=== PATIENT | female | born 1935 | race Caucasian/White ===

== ENCOUNTER 2017-11-07 09:55 | Inpatient (IN) ==
[2017-11-07] MEDS ORDERED: Dexmedetomidine HCl 400 MCG/100 ML MLS IVC SCH (12:15)
[2017-11-07] MEDS: FentaNYL (PF) 1,000 MCG in 0.9 % Sodium Chloride 80 ML IVC SCH (12:30)
[2017-11-07] MEDS ORDERED: Naloxone 0.4 MG/ML INJ IVP PRN (13:22)
[2017-11-07 13:53] LABS: Basophils % 0.1 %; Hematocrit 42.4 % (35.3-44.9); Hemoglobin 13.8 g/dL (11.5-15.4); Immature Granulocytes % 0.6 % (0-4); Lymphocytes # 0.7 K/mcL (0.6-4.6); Lymphocytes % 5.2 %; Mean Corpuscular HGB Conc 32.5 g/dL (31.6-35.5); Mean Corpuscular Hemoglobin 28.6 pg (28.0-33.3); Mean Platelet Volume 9.8 fL (9.4-12.4); Monocytes # 0.1 K/mcL (0.0-1.3); Monocytes % 0.7 %; Neutrophils # 11.9 K/mcL (1.6-8.9); Platelet Count 207 K/mcL (140-400); Red Blood Count 4.82 M/mcL (3.82-4.97); Red Cell Distribution Width 14.3 % (11.5-14.5); Segmented Neutrophils % 93.4 %
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
[2017-11-07] MEDS ORDERED: Lacri-Lube 3.5 GM TUBE BOTH EYES PRN (14:20)
[2017-11-07 14:28] LABS: Alanine Aminotransferase 37 Units/L (7-52); Albumin 3.1 g/dL (3.5-5.7); Albumin/Globulin Ratio 0.9 (1.1-2.2); Alkaline Phosphatase 122 Units/L (34-104); Aspartate Amino Transferase 35 Units/L (13-39); BUN/Creatinine Ratio 24 (6-26); Bilirubin,Direct 0.1 mg/dL (0.0-0.2); Bilirubin,Indirect 0.5 mg/dL (0.0-1.2); Bilirubin,Total 0.6 mg/dL (0.3-1.0); Blood Urea Nitrogen 14 mg/dL (8-23); Calcium 8.1 mg/dL (8.6-10.3); Carbon Dioxide 21 mEq/L (23-29); Chloride 110 mEq/L (98-107); Globulin 3.3 g/dL (2.4-3.5); Glucose 157 mg/dL (70-105); Magnesium 1.6 mg/dL (1.6-2.6); Osmolality,Calculated 294 (280-300); Potassium 3.9 mEq/L (3.5-5.1); Sodium 140 mEq/L (136-145); Total Protein 6.4 g/dL (6.4-8.9); eGFR For Non-African Americans > 60 (> 60)
[2017-11-07 14:35] LABS: Bilirubin,Urine Negative (Negative); Blood,Urine Moderate (Negative); Color,Urine Yellow (Yellow); Glucose,Urine (UA) Normal (Normal); Ketones,Urine Negative (Negative); Leukocyte Esterase,Urine Large (Negative); Nitrite,Urine Positive (Negative); Protein,Urine 30 mg/dL (Neg-Trace); Specific Gravity,Urine 1.022 (1.010-1.025); Urobilinogen,Urine Normal (Normal)
[2017-11-07] MEDS: Lacri-Lube 3.5 GM TUBE BOTH EYES SCH ×3 (14:45→23:16)
[2017-11-07] MEDS: Pantoprazole 40 MG VIAL IVP SCH (14:45)
[2017-11-07 14:47] LABS: Bacteria,Urine Many per hpf (None-Few); Hyaline Casts,Urine Few per lpf (None-Few); Squamous Epithelial Cell,Urine Many per lpf (None-Few); WBC,Urine TNTC per hpf (0-3)
[2017-11-07] MEDS ORDERED: *HR* Dextrose 50 % in Water (Syg) 50 ML SYRINGE IVP PRN (14:51)
[2017-11-07] MEDS ORDERED: D5% in Water 1,000 ML IVC PRN (14:51)
[2017-11-07] MEDS ORDERED: Dextrose Gel 15 GM/37.5 ML TUBE PO PRN ×2 (14:51)
[2017-11-07 15:04] LABS: Clarity,Urine Hazy (Clear)
[2017-11-07 15:19] LABS: Amorphous Sediment,Urine Moderate (Few); Calcium Oxalate Crystals,Urine Present; RBC,Urine 15-30 per hpf (0-3)
[2017-11-07 15:21] LABS: Yeast,Urine Few per hpf (None Seen)
[2017-11-07] MEDS: Piperacillin/Tazobactam 3.375 GM in 0.9 % Sodium Chloride Mini Bag 100 ML IVPB SCH ×2 (15:58→23:16)
[2017-11-07] MEDS: *HR* Heparin 5,000 UNIT/ML VIAL SQ SCH ×2 (15:58→23:16)
[2017-11-07] MEDS: Insulin LISPRO 300 UNITS/3 ML VIAL SQ SCH ×2 (17:15→23:19)
[2017-11-07] MEDS: Chlorhexidine Rinse 15 ML MOUTHWASH MM SCH (21:09)
[2017-11-08] MEDS: FentaNYL (PF) 1,000 MCG in 0.9 % Sodium Chloride 80 ML IVC SCH (02:11)
[2017-11-08] MEDS: Lacri-Lube 3.5 GM TUBE BOTH EYES SCH ×2 (03:06→08:48)
[2017-11-08 03:50] LABS: Basophils % 0.1 %; Hematocrit 40.4 % (35.3-44.9); Immature Granulocytes % 0.3 % (0-4); Lymphocytes # 1.1 K/mcL (0.6-4.6); Lymphocytes % 9.7 %; Mean Corpuscular HGB Conc 32.2 g/dL (31.6-35.5); Mean Corpuscular Hemoglobin 27.8 pg (28.0-33.3); Mean Corpuscular Volume 86.5 fL (83.0-100.0); Mean Platelet Volume 9.8 fL (9.4-12.4); Monocytes # 0.4 K/mcL (0.0-1.3); Monocytes % 3.3 %; Neutrophils # 9.9 K/mcL (1.6-8.9); Platelet Count 223 K/mcL (140-400); Red Blood Count 4.67 M/mcL (3.82-4.97); Red Cell Distribution Width 14.3 % (11.5-14.5); Segmented Neutrophils % 86.6 %
[2017-11-08 04:15] LABS: BUN/Creatinine Ratio 20 (6-26); Blood Urea Nitrogen 12 mg/dL (8-23); Calcium 8.6 mg/dL (8.6-10.3); Carbon Dioxide 22 mEq/L (23-29); Chloride 109 mEq/L (98-107); Glucose 174 mg/dL (70-105); Osmolality,Calculated 292 (280-300); Potassium 3.7 mEq/L (3.5-5.1); Sodium 139 mEq/L (136-145); eGFR For Non-African Americans > 60 (> 60)
[2017-11-08 05:10] LABS: ABG Base Excess 1 mEq/L (-2 to 3); ABG HCO3 27 mEq/L (21-27); ABG Oxygen Saturation 95 % (95-98); ABG PCO2 44 mmHg (35-45); ABG PH 7.39 pH Units (7.32-7.45); ABG PO2 76 mmHg (85-104); ABG TCO2 28 mEq/L (20-26); Blood Gas Modality PRVC; Blood Gas PEEP 5 cm H2O; Blood Gas Respiration Rate 12; Blood Gas VT 420 cc
[2017-11-08] MEDS: Insulin LISPRO 300 UNITS/3 ML VIAL SQ SCH ×4 (06:20→23:03)
[2017-11-08] MEDS ORDERED: Furosemide 20 MG/2 ML VIAL IVP ONE (07:32)
[2017-11-08] MEDS: Piperacillin/Tazobactam 3.375 GM in 0.9 % Sodium Chloride Mini Bag 100 ML IVPB SCH ×3 (07:39→23:02)
--- NOTE | 2017-11-08 07:40 | Pulmonology Progress Note ---
<Goran Aponte W - Last Filed: 11/08/17 08:38> Date of Encounter: 11/08/17 Assessment and Plan (1) Acute respiratory failure Current Visit: No Status: Inactive Qualifiers: Respiratory failure complication: hypoxia and hypercapnia Qualified Code(s) : J96.01 - Acute respiratory failure with hypoxia; J96.02 - Acute respiratory failure with hypercapnia (2) Severe sepsis Current Visit: Yes Status: Acute (3) Poor social situation Current Visit: Yes Status: Acute (4) DVT prophylaxis Current Visit: Yes Status: Acute (5) Altered mental status Current Visit: No Status: Acute Qualifiers: Coma timing: in the field (EMT or ambulance) (6) Hypothyroidism Current Visit: No Status: Chronic Qualifiers: Hypothyroidism type: unspecified Qualified Code(s): E03.9 - Hypothyroidism , unspecified Objective PUL Vital signs: Last Vital Signs Temp 97.0 F L 11/08/17 07:30 Pulse 58 11/08/17 07:15 Resp 12 11/08/17 08:01 BP 127/64 11/08/17 07:15 Pulse Ox 94 11/08/17 08:01 Ventilator Settings Ventilator Settings: Ventilator Settings, Last 8 Hours Ventilator Tidal Volume 420 Setting Ventilator Tidal Volume 420 Setting Ventilator Tidal Volume 420 Setting Ventilator Tidal Volume 420 Setting Ventilator Tidal Volume 420 Setting Ventilator Tidal Volume 420 Setting Ventilator Tidal Volume 420 Setting Ventilator Tidal Volume 420 Setting Ventilator Tidal Volume 420 Setting Ventilator Respiratory Rate 12 Setting Ventilator Respiratory Rate 12 Setting Ventilator Respiratory Rate 12 Setting Ventilator Respiratory Rate 12 Setting Ventilator Respiratory Rate 12 Setting Ventilator Respiratory Rate 12 Setting Ventilator Respiratory Rate 12 Setting Ventilator Respiratory Rate 12 Setting Ventilator Respiratory Rate 12 Setting Actual Respiratory Rate 12 Actual Respiratory Rate 10 Actual Respiratory Rate 12 Actual Respiratory Rate 25 Actual Respiratory Rate 12 Actual Respiratory Rate 12 Actual Respiratory Rate 12 Actual Respiratory Rate 12 Actual Respiratory Rate 12 Actual Respiratory Rate 12 Positive End Expiratory 5 Pressure Positive End Expiratory 5 Pressure Positive End Expiratory 5 Pressure Positive End Expiratory 5 Pressure Positive End Expiratory 5 Pressure Positive End Expiratory 5 Pressure Positive End Expiratory 5 Pressure Positive End Expiratory 5 Pressure Positive End Expiratory 5 Pressure Positive End Expiratory 5 Pressure Peak Inspiratory Airway 15 Pressure Peak Inspiratory Airway 15 Pressure Peak Inspiratory Airway 23 Pressure Peak Inspiratory Airway 26 Pressure Peak Inspiratory Airway 25 Pressure Peak Inspiratory Airway 25 Pressure Peak Inspiratory Airway 23 Pressure Peak Inspiratory Airway 25 Pressure Peak Inspiratory Airway 24 Pressure Peak Inspiratory Airway 24 Pressure Results - Laboratory Findings CBC and BMP: 11/08/17 03:35 07/26/18 03:35 ABG ABG pH 7.39 pH Units (7.32-7.45) 11/08/17 05:08 ABG pCO2 44 mmHg (35-45) 11/08/17 05:08 ABG pO2 76 mmHg (85-104) L 11/08/17 05:08 ABG O2 Saturation 95 % (95-98) 11/08/17 05:08 Abnormal lab findings: Abnormal lab results WBC 11.5 K/mcL (4.3-11.1) H 11/08/17 03:35 MCH 27.8 pg (28.0-33.3) L 11/08/17 03:35 Neutrophils # 9.9 K/mcL (1.6-8.9) H 11/08/17 03:35 ABG pO2 76 mmHg (85-104) L 11/08/17 05:08 ABG Total CO2 28 mEq/L (20-26) H 11/08/17 05:08 Chloride 109 mEq/L (98-107) H 11/08/17 03:35 Carbon Dioxide 22 mEq/L (23-29) L 11/08/17 03:35 Glucose 174 mg/dL (70-105) H 11/08/17 03:35 POC Glucose 155 mg/dL (70-99) H 11/07/17 23:19 Alkaline Phosphatase 122 Units/L (34-104) H 11/07/17 13:37 Albumin 3.1 g/dL (3.5-5.7) L 11/07/17 13:37 Albumin/Globulin Ratio 0.9 (1.1-2.2) L 11/07/17 13:37 Urine Clarity Hazy (Clear) A 11/07/17 13:29 Urine Protein 30 mg/dL (Neg-Trace) H 11/07/17 13:29 Urine Blood Moderate (Negative) H 11/07/17 13:29 Urine Nitrite Positive (Negative) A 11/07/17 13:29 Ur Leukocyte Esterase Large (Negative) H 11/07/17 13:29 Urine Microscopic RBC 15-30 per hpf (0-3) H 11/07/17 13:29 Urine Microscopic WBC TNTC per hpf (0-3) H 11/07/17 13:29 Ur Squamous Epith Cells Many per lpf (None-Few) H 11/07/17 13:29 Amorphous Sediment Moderate (Few) H 11/07/17 13:29 Urine Bacteria Many per hpf (None-Few) H 11/07/17 13:29 Urine Yeast Few per hpf (None Seen) H 11/07/17 13:29 Ur Culture Indicated? NO. (NO) A 11/07/17 13:29 - Microbiology Findings Microbiology Findings: Microbiology, Last 48 Hours 11/07/17 13:37 Blood Culture - Preliminary Peripheral Venipuncture Culture is incubating and being continuously monitored for growth. Final report to follow. - Clinical Findings Intake & Output: Intake & Output 11/07/17 11/08/17 11/08/17 23:59 07:59 15:59 Intake Total 370 / 370 180 / 180 Output Total 525 / 525 250 / 250 Balance -155 / -155 -70 / -70 Weight 80.7 kg Consult Discharge Plan - Plan Referrals: Jersey Esquivel MD [Primary Care Provider] - - Attending Attestation I examined this patient and my medical decision-making was reviewed with the Resident Physician. I agree with the documented findings, disposition and treatment plan as described except to the extent set forth below. We independently had [id number] contact with the patient Patient seen and examined at bedside Labs, radiology, chart personally reviewed. Management was reviewed during multidisciplinary critical care rounds. 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 Acceptable gas exchange today on vent plan for spontaneous breathing trial and liberation Cards: History of atrial fibrillation currently rate controlled and in sinus rhythm. He likely restart her home oral anticoagulation for this. We will give a dose of IV Lasix for history of heart failure in preparation for liberation from the vent given her crystalloid infusion over last 24 hours a suspect a component of hydrostatic edema although appears to be fairly minimal at this point GI: GI prophylaxis given Nutrition: Nothing by mouth for now Renal: UOP Monitored, Cont to Trend sCr and monitor Electrolytes. ID: Severe sepsis lactate is normalized she is on broad-spectrum antibiotics for presumed genitourinary infection versus pneumonia de-escalate within the next 24 hours pending culture and sensitivity Heme/Onc: DVT prophylaxis given H&H stable platelets stable Endo: Glucose Monitored Integ/MSK: Skin Care per routine ICU Nursing Protocol to prevent ulcers. Lines: All lines examined without evidence of infection : Dispo: Remain in ICU today CODE: Full code social media sr strategy manager's been consulted to try to contact family members to establish NOK although there has been a history of adult protective services being involved with this patient's case. <Vianey Moran N - Last Filed: 11/08/17 16:45> Date of Encounter: 11/08/17 Time of Encounter: 07:40 Assessment and Plan (1) Acute respiratory failure Current Visit: Yes Status: Acute Patient presented from [facility] with acute respiratory failure and was intubated and transferred to the [facility] ICU for further care. Her ABG was improved with ventilator management, she was started on broad-spectrum antibiotics, and cultures were collected and are pending. Possible sources of infection include aspiration pneumonia versus UTI. Patient's respiratory failure improved overnight and she is currently tolerating oxygen mask. -continue broad spectrum antibiotic therapy -cultures pending, may de-escalate antibiotics after cultures and sensitivities -continue supplemental oxygen via oxymask -continue bronchodilators -will obtain speech consult for swallow evaluation to assess for possible aspiration pneumonia risk. (2) Severe sepsis Current Visit: Yes Status: Acute Vitals have been been stable overnight, patient's white blood cell count is near normal Respiratory failure has improved and the patient is no longer ventilator dependent Most recent lactic acid was 1.6 Continue to monitor signs of sepsis (3) Altered mental status Current Visit: No Status: Acute Patient is not oriented to time or location. Unaware this is patient's baseline. She did not appear to be confused agitated at this time. We will continue to monitor for signs of delirium. Qualifiers: Coma timing: in the field (EMT or ambulance) (4) DVT prophylaxis Current Visit: Yes Status: Acute Heparin 5000 units subcutaneous every 12 hours Subjective Principal diagnosis: Acute respiratory failure Interval history: Patient was seen and examined this morning at bedside with attending present. She remained on the ventilator overnight without, complications. This morning her sedation had been decreased and the patient was awake. A trial of CPAP was performed which the patient passed and the patient was subsequently extubated successfully. The patient is currently on oxygen mask and saturating well. The patient is awake, but she is not oriented to place or time. She does not complain of any pain or shortness of breath, but is difficult to assess due to mental status. She continues to be treated with Levaquin, Zosyn, and vancomycin broad-spectrum antibiotics with cultures pending. Her white blood cell count has decreased to near normal levels and a morning ABG shows a pH that is within range. Objective PUL Vital signs: Last Vital Signs Temp 97.9 F 11/08/17 03:00 Pulse 58 11/08/17 07:15 Resp 10 11/08/17 07:15 BP 127/64 11/08/17 07:15 Pulse Ox 94 11/08/17 07:15 General appearance: other (Appears somewhat confused, she is not oriented to place or time) Eyes: nonicteric Effort: normal Auscultation: right: rales (Course breath sounds only on the right side) Cardiovascular: regular rate and rhythm Gastrointestinal: normoactive bowel sounds, soft, non-tender Integumentary: other (Appropriate for age, evidence of ecchymosis on upper extremities) Extremities: other (Evidence of arthritic changes) Ventilator Settings Ventilator Settings: Ventilator Settings, Last 8 Hours Ventilator Tidal Volume 420 Setting Ventilator Tidal Volume 420 Setting Ventilator Tidal Volume 420 Setting Ventilator Tidal Volume 420 Setting Ventilator Tidal Volume 420 Setting Ventilator Tidal Volume 420 Setting Ventilator Tidal Volume 420 Setting Ventilator Tidal Volume 420 Setting Ventilator Tidal Volume 420 Setting Ventilator Tidal Volume 420 Setting Ventilator Respiratory Rate 12 Setting Ventilator Respiratory Rate 12 Setting Ventilator Respiratory Rate 12 Setting Ventilator Respiratory Rate 12 Setting Ventilator Respiratory Rate 12 Setting Ventilator Respiratory Rate 12 Setting Ventilator Respiratory Rate 12 Setting Ventilator Respiratory Rate 12 Setting Ventilator Respiratory Rate 12 Setting Ventilator Respiratory Rate 12 Setting Actual Respiratory Rate 10 Actual Respiratory Rate 12 Actual Respiratory Rate 25 Actual Respiratory Rate 12 Actual Respiratory Rate 12 Actual Respiratory Rate 12 Actual Respiratory Rate 12 Actual Respiratory Rate 12 Actual Respiratory Rate 12 Actual Respiratory Rate 12 Positive End Expiratory 5 Pressure Positive End Expiratory 5 Pressure Positive End Expiratory 5 Pressure Positive End Expiratory 5 Pressure Positive End Expiratory 5 Pressure Positive End Expiratory 5 Pressure Positive End Expiratory 5 Pressure Positive End Expiratory 5 Pressure Positive End Expiratory 5 Pressure Positive End Expiratory 5 Pressure Peak Inspiratory Airway 15 Pressure Peak Inspiratory Airway 23 Pressure Peak Inspiratory Airway 26 Pressure Peak Inspiratory Airway 25 Pressure Peak Inspiratory Airway 25 Pressure Peak Inspiratory Airway 23 Pressure Peak Inspiratory Airway 25 Pressure Peak Inspiratory Airway 24 Pressure Peak Inspiratory Airway 24 Pressure Peak Inspiratory Airway 24 Pressure Results - Laboratory Findings CBC and BMP: 11/08/17 03:35 11/08/17 03:35 ABG ABG pH 7.39 pH Units (7.32-7.45) 11/08/17 05:08 ABG pCO2 44 mmHg (35-45) 11/08/17 05:08 ABG pO2 76 mmHg (85-104) L 11/08/17 05:08 ABG O2 Saturation 95 % (95-98) 11/08/17 05:08 Abnormal lab findings: Abnormal lab results WBC 11.5 K/mcL (4.3-11.1) H 11/08/17 03:35 MCH 27.8 pg (28.0-33.3) L 11/08/17 03:35 Neutrophils # 9.9 K/mcL (1.6-8.9) H 11/08/17 03:35 ABG pO2 76 mmHg (85-104) L 11/08/17 05:08 ABG Total CO2 28 mEq/L (20-26) H 11/08/17 05:08 Chloride 109 mEq/L (98-107) H 11/08/17 03:35 Carbon Dioxide 22 mEq/L (23-29) L 11/08/17 03:35 Glucose 174 mg/dL (70-105) H 11/08/17 03:35 POC Glucose 155 mg/dL (70-99) H 11/07/17 23:19 Alkaline Phosphatase 122 Units/L (34-104) H 11/07/17 13:37 Albumin 3.1 g/dL (3.5-5.7) L 11/07/17 13:37 Albumin/Globulin Ratio 0.9 (1.1-2.2) L 11/07/17 13:37 Urine Clarity Hazy (Clear) A 11/07/17 13:29 Urine Protein 30 mg/dL (Neg-Trace) H 11/07/17 13:29 Urine Blood Moderate (Negative) H 11/07/17 13:29 Urine Nitrite Positive (Negative) A 11/07/17 13:29 Ur Leukocyte Esterase Large (Negative) H 11/07/17 13:29 Urine Microscopic RBC 15-30 per hpf (0-3) H 11/07/17 13:29 Urine Microscopic WBC TNTC per hpf (0-3) H 11/07/17 13:29 Ur Squamous Epith Cells Many per lpf (None-Few) H 11/07/17 13:29 Amorphous Sediment Moderate (Few) H 11/07/17 13:29 Urine Bacteria Many per hpf (None-Few) H 11/07/17 13:29 Urine Yeast Few per hpf (None Seen) H 11/07/17 13:29 Ur Culture Indicated? NO. (NO) A 11/07/17 13:29 - Microbiology Findings Microbiology Findings: Microbiology, Last 48 Hours 11/07/17 13:37 Blood Culture - Preliminary Peripheral Venipuncture Culture is incubating and being continuously monitored for growth. Final report to follow. - Clinical Findings Intake & Output: Intake & Output 11/07/17 11/07/17 11/08/17 15:59 23:59 07:59 Intake Total 370 / 370 180 / 180 Output Total 525 / 525 150 / 150 Balance -155 / -155 30 / 30 Weight 77.6 kg 80.7 kg
[2017-11-08] MEDS: *HR* Heparin 5,000 UNIT/ML VIAL SQ SCH ×3 (07:45→23:03)
[2017-11-08] MEDS: Levofloxacin 750 MG/150 ML 750 MG/150 ML BAG IVPB SCH (08:47)
[2017-11-08] MEDS: Chlorhexidine Rinse 15 ML MOUTHWASH MM SCH (08:48)
[2017-11-08] MEDS: Pantoprazole 40 MG VIAL IVP SCH (08:48)
[2017-11-08] MEDS ORDERED: Aminoglycoside Consult 1 EACH MC ONE (12:11)
[2017-11-09 04:10] LABS: Basophils % 0.1 %; Eosinophils % 0.1 %; Hemoglobin 13.3 g/dL (11.5-15.4); Immature Granulocytes % 0.6 % (0-4); Lymphocytes # 1.8 K/mcL (0.6-4.6); Lymphocytes % 14.4 %; Mean Corpuscular HGB Conc 32.4 g/dL (31.6-35.5); Mean Corpuscular Hemoglobin 28.3 pg (28.0-33.3); Mean Corpuscular Volume 87.2 fL (83.0-100.0); Mean Platelet Volume 10.1 fL (9.4-12.4); Monocytes # 0.9 K/mcL (0.0-1.3); Monocytes % 6.9 %; Platelet Count 278 K/mcL (140-400); Red Cell Distribution Width 14.3 % (11.5-14.5); Segmented Neutrophils % 77.9 %
[2017-11-09 04:22] LABS: BUN/Creatinine Ratio 18 (6-26); Blood Urea Nitrogen 11 mg/dL (8-23); Calcium 8.5 mg/dL (8.6-10.3); Carbon Dioxide 26 mEq/L (23-29); Chloride 105 mEq/L (98-107); Glucose 117 mg/dL (70-105); Osmolality,Calculated 288 (280-300); Potassium 2.9 mEq/L (3.5-5.1); Sodium 139 mEq/L (136-145); eGFR For Non-African Americans > 60 (> 60)
[2017-11-09] MEDS: Insulin LISPRO 300 UNITS/3 ML VIAL SQ SCH (05:15)
[2017-11-09 07:05] LABS: Magnesium 1.8 mg/dL (1.6-2.6)
[2017-11-09] MEDS: Piperacillin/Tazobactam 3.375 GM in 0.9 % Sodium Chloride Mini Bag 100 ML IVPB SCH ×2 (07:39→15:00)
[2017-11-09] MEDS: Pantoprazole 40 MG VIAL IVP SCH (07:39)
[2017-11-09] MEDS: *HR* Heparin 5,000 UNIT/ML VIAL SQ SCH ×2 (07:40→15:02)
[2017-11-09] MEDS: Levofloxacin 750 MG/150 ML 750 MG/150 ML BAG IVPB SCH (07:40)
[2017-11-09] MEDS ORDERED: Ondansetron 4 MG/2 ML VIAL IVP PRN ×2 (08:18→08:23)
[2017-11-09] MEDS ORDERED: *HR* Dextrose 50 % in Water (Syg) 50 ML SYRINGE IVP PRN (08:23)
[2017-11-09] MEDS ORDERED: D5% in Water 1,000 ML IVC PRN (08:23)
[2017-11-09] MEDS ORDERED: Naloxone 0.4 MG/ML INJ IVP PRN (08:23)
[2017-11-09] MEDS ORDERED: Dextrose Gel 15 GM/37.5 ML TUBE PO PRN ×2 (08:23)
[2017-11-09] MEDS ORDERED: Pantoprazole 40 MG VIAL IVP SCH (09:00)
--- NOTE | 2017-11-09 09:44 | Pulmonology Progress Note ---
<Goran Aponte W - Last Filed: 11/09/17 10:44> Date of Encounter: 11/09/17 Assessment and Plan (1) Severe sepsis Current Visit: Yes Status: Acute (2) Poor social situation Current Visit: Yes Status: Acute (3) DVT prophylaxis Current Visit: Yes Status: Acute (4) Altered mental status Current Visit: No Status: Acute Qualifiers: Coma timing: in the field (EMT or ambulance) (5) Hypothyroidism Current Visit: No Status: Chronic Qualifiers: Hypothyroidism type: unspecified Qualified Code(s): E03.9 - Hypothyroidism , unspecified Objective PUL Vital signs: Last Vital Signs Temp 98.2 F 11/09/17 04:51 Pulse 52 11/09/17 08:00 Resp 20 11/09/17 08:00 BP 147/64 11/09/17 08:00 Pulse Ox 93 11/09/17 08:00 Results - Laboratory Findings CBC and BMP: 11/09/17 03:26 11/09/17 03:26 ABG ABG pH 7.39 pH Units (7.32-7.45) 11/08/17 05:08 ABG pCO2 44 mmHg (35-45) 11/08/17 05:08 ABG pO2 76 mmHg (85-104) L 11/08/17 05:08 ABG O2 Saturation 95 % (95-98) 11/08/17 05:08 Abnormal lab findings: Abnormal lab results WBC 12.8 K/mcL (4.3-11.1) H 11/09/17 03:26 Neutrophils # 10.0 K/mcL (1.6-8.9) H 11/09/17 03:26 ABG pO2 76 mmHg (85-104) L 11/08/17 05:08 ABG Total CO2 28 mEq/L (20-26) H 11/08/17 05:08 Potassium 2.9 mEq/L (3.5-5.1) L 11/09/17 03:26 Glucose 117 mg/dL (70-105) H 11/09/17 03:26 POC Glucose 112 mg/dL (70-99) H 11/08/17 22:51 Calcium 8.5 mg/dL (8.6-10.3) L 11/09/17 03:26 Alkaline Phosphatase 122 Units/L (34-104) H 11/07/17 13:37 Albumin 3.1 g/dL (3.5-5.7) L 11/07/17 13:37 Albumin/Globulin Ratio 0.9 (1.1-2.2) L 11/07/17 13:37 Urine Clarity Hazy (Clear) A 11/07/17 13:29 Urine Protein 30 mg/dL (Neg-Trace) H 11/07/17 13:29 Urine Blood Moderate (Negative) H 11/07/17 13:29 Urine Nitrite Positive (Negative) A 11/07/17 13:29 Ur Leukocyte Esterase Large (Negative) H 11/07/17 13:29 Urine Microscopic RBC 15-30 per hpf (0-3) H 11/07/17 13:29 Urine Microscopic WBC TNTC per hpf (0-3) H 11/07/17 13:29 Ur Squamous Epith Cells Many per lpf (None-Few) H 11/07/17 13:29 Amorphous Sediment Moderate (Few) H 11/07/17 13:29 Urine Bacteria Many per hpf (None-Few) H 11/07/17 13:29 Urine Yeast Few per hpf (None Seen) H 11/07/17 13:29 Ur Culture Indicated? NO. (NO) A 11/07/17 13:29 Vancomycin Trough 35 mcg/mL (5-10) H 11/08/17 21:16 - Microbiology Findings Microbiology Findings: Microbiology, Last 48 Hours 11/07/17 14:15 Legionella Antigen - Final Urine,Catheterized Streptococcus pneumoniae Antigen (M - Final 11/07/17 13:37 Blood Culture - Preliminary Peripheral Venipuncture Culture is incubating and being continuously monitored for growth. Final report to follow. - Clinical Findings Intake & Output: Intake & Output 11/08/17 11/09/17 11/09/17 23:59 07:59 15:59 Intake Total 350 / 350 100 / 100 0 / 0 Output Total 500 / 500 450 / 450 Balance -150 / -150 -350 / -350 0 / 0 Weight 82 kg 83 kg Consult Discharge Plan - Plan Referrals: Jersey Esquivel MD [Primary Care Provider] - - Attending Attestation I examined this patient and my medical decision-making was reviewed with the Resident Physician. I agree with the documented findings, disposition and treatment plan as described except to the extent set forth below. We independently had [id number] contact with the patient Patient seen and examined at bedside Labs, radiology, chart personally reviewed. Management was reviewed during multidisciplinary critical care rounds. 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 avoid sensory deprivation, and avoid SHRIMP PACKER depressant medications as able. Pulm: Acute hypoxic hypercapnic respiratory failure secondary to sepsis liberated from the vent doing well on nasal cannula O2 wean as tolerated Cards: Continue diuretic for known heart failure GI: Stop PPI Nutrition: Appreciate formal speech evaluation will advance diet based upon the recommendations Renal: UOP Monitored, Cont to Trend sCr and monitor Electrolytes. ID: Continue treatment for sepsis which is improving suspected UTI patient has gram-negative rods from urine an outside hospital stop vancomycin and Levaquin today further de-escalation based upon clinical course. Heme/Onc: DVT prophylaxis given holding long-term anticoagulation with NOAC pending formal indication Endo: Glucose Monitored Integ/MSK: Skin Care per routine ICU Nursing Protocol to prevent ulcers. Lines: All lines examined without evidence of infection : Dispo: Stable for transfer out of ICU to [facility] for ongoing care report called to hospitalist service CODE: Full <Vianey Moran N - Last Filed: 11/09/17 14:28> Date of Encounter: 11/09/17 Time of Encounter: 09:43 Assessment and Plan (1) Acute respiratory failure Current Visit: Yes Status: Acute Patient presented from [facility] ED with acute respiratory failure and was intubated and transferred to the [facility] ICU for further care. Her ABG was improved with ventilator management, she was started on broad-spectrum antibiotics, and cultures were collected. Urine culture from [facility] reportedly grew Pseudomonas. Patient's respiratory failure has improved and she is currently only on room air and nasal cannula at times. -Discontinue vancomycin and Levaquin. Patient is only on Zosyn now. -Continue supplemental oxygen via nasal cannula as needed. -continue bronchodilators (2) Severe sepsis Current Visit: Yes Status: Acute Vitals have been been stable overnight, patient's white blood cell count has remained stable and slightly elevated Respiratory failure has improved and the patient is no longer ventilator dependent Most recent lactic acid was 1.6 Continue to monitor signs of sepsis (3) Altered mental status Current Visit: No Status: Acute Patient is not oriented to time or location. Unaware this is patient's baseline. Qualifiers: Coma timing: in the field (EMT or ambulance) (4) DVT prophylaxis Current Visit: Yes Status: Acute Heparin 5000 units subcutaneous every 12 hours Subjective Principal diagnosis: Acute respiratory failure Interval history: Patient was seen and examined this morning at bedside with attending present. She has been stable overnight on 4 L nasal cannula saturating over 95%. No recorded fevers overnight and has remained hemodynamically stable. Blood pressure readings have been elevated in the 140s to 150s systolic. Patient is awake and alert today, however it is hard to assess her mental status as she is slightly confused and difficult to understand. Denies any pain today, but is experiencing some nausea which subsided after Zofran. Her urinary culture from [facility] grew Pseudomonas, de-escalated antibiotics with the removal of vancomycin and Levaquin. Patient is now only on Zosyn. Stable for transfer to [facility] telemetry. Objective PUL Vital signs: Last Vital Signs Temp 98.2 F 11/09/17 04:51 Pulse 52 11/09/17 08:00 Resp 20 11/09/17 08:00 BP 147/64 11/09/17 08:00 Pulse Ox 93 11/09/17 08:00 General appearance: other (Slightly confused, speech is difficult to understand. ) Effort: normal Auscultation: bilateral: clear Cardiovascular: regular rate and rhythm Gastrointestinal: normoactive bowel sounds, soft, non-tender Integumentary: normal unable to assess due to mental status Results - Laboratory Findings CBC and BMP: 11/09/17 03:26 11/09/17 03:26 ABG ABG pH 7.39 pH Units (7.32-7.45) 11/08/17 05:08 ABG pCO2 44 mmHg (35-45) 11/08/17 05:08 ABG pO2 76 mmHg (85-104) L 11/08/17 05:08 ABG O2 Saturation 95 % (95-98) 11/08/17 05:08 Abnormal lab findings: Abnormal lab results WBC 12.8 K/mcL (4.3-11.1) H 11/09/17 03:26 Neutrophils # 10.0 K/mcL (1.6-8.9) H 11/09/17 03:26 ABG pO2 76 mmHg (85-104) L 11/08/17 05:08 ABG Total CO2 28 mEq/L (20-26) H 11/08/17 05:08 Potassium 2.9 mEq/L (3.5-5.1) L 11/09/17 03:26 Glucose 117 mg/dL (70-105) H 11/09/17 03:26 POC Glucose 112 mg/dL (70-99) H 11/08/17 22:51 Calcium 8.5 mg/dL (8.6-10.3) L 11/09/17 03:26 Alkaline Phosphatase 122 Units/L (34-104) H 11/07/17 13:37 Albumin 3.1 g/dL (3.5-5.7) L 11/07/17 13:37 Albumin/Globulin Ratio 0.9 (1.1-2.2) L 11/07/17 13:37 Urine Clarity Hazy (Clear) A 11/07/17 13:29 Urine Protein 30 mg/dL (Neg-Trace) H 11/07/17 13:29 Urine Blood Moderate (Negative) H 11/07/17 13:29 Urine Nitrite Positive (Negative) A 11/07/17 13:29 Ur Leukocyte Esterase Large (Negative) H 11/07/17 13:29 Urine Microscopic RBC 15-30 per hpf (0-3) H 11/07/17 13:29 Urine Microscopic WBC TNTC per hpf (0-3) H 11/07/17 13:29 Ur Squamous Epith Cells Many per lpf (None-Few) H 11/07/17 13:29 Amorphous Sediment Moderate (Few) H 11/07/17 13:29 Urine Bacteria Many per hpf (None-Few) H 11/07/17 13:29 Urine Yeast Few per hpf (None Seen) H 11/07/17 13:29 Ur Culture Indicated? NO. (NO) A 11/07/17 13:29 Vancomycin Trough 35 mcg/mL (5-10) H 11/08/17 21:16 - Microbiology Findings Microbiology Findings: Microbiology, Last 48 Hours 11/07/17 14:15 Legionella Antigen - Final Urine,Catheterized Streptococcus pneumoniae Antigen (M - Final 11/07/17 13:37 Blood Culture - Preliminary Peripheral Venipuncture Culture is incubating and being continuously monitored for growth. Final report to follow. - Clinical Findings Intake & Output: Intake & Output 11/08/17 11/09/17 11/09/17 23:59 07:59 15:59 Intake Total 350 / 350 100 / 100 0 / 0 Output Total 500 / 500 450 / 450 Balance -150 / -150 -350 / -350 0 / 0 Weight 82 kg 83 kg
[2017-11-09] MEDS ORDERED: Insulin LISPRO 300 UNITS/3 ML VIAL SQ SCH (12:00)
[2017-11-09] MEDS ORDERED: *HR* Labetalol 20 MG/4 ML SYRINGE IVP ONE (13:27)
[2017-11-09 15:23] LABS: BUN/Creatinine Ratio 13 (6-26); Blood Urea Nitrogen 11 mg/dL (8-23); Carbon Dioxide 30 mEq/L (23-29); Chloride 105 mEq/L (98-107); Glucose 128 mg/dL (70-105); Osmolality,Calculated 299 (280-300); Potassium 3.3 mEq/L (3.5-5.1); Sodium 144 mEq/L (136-145); eGFR For Non-African Americans > 60 (> 60)
[2017-11-10] MEDS: *HR* Heparin 5,000 UNIT/ML VIAL SQ SCH ×3 (00:49→16:30)
[2017-11-10] MEDS: Piperacillin/Tazobactam 3.375 GM in 0.9 % Sodium Chloride Mini Bag 100 ML IVPB SCH ×3 (00:50→16:29)
[2017-11-10 02:11] LABS: Basophils % 0.2 %; Eosinophils % 0.3 %; Hematocrit 41.2 % (35.3-44.9); Hemoglobin 13.3 g/dL (11.5-15.4); Immature Granulocytes % 0.5 % (0-4); Lymphocytes # 2.3 K/mcL (0.6-4.6); Lymphocytes % 21.4 %; Mean Corpuscular HGB Conc 32.3 g/dL (31.6-35.5); Mean Corpuscular Hemoglobin 27.9 pg (28.0-33.3); Mean Corpuscular Volume 86.6 fL (83.0-100.0); Mean Platelet Volume 9.9 fL (9.4-12.4); Monocytes % 9.1 %; Neutrophils # 7.4 K/mcL (1.6-8.9); Platelet Count 280 K/mcL (140-400); Red Blood Count 4.76 M/mcL (3.82-4.97); Red Cell Distribution Width 14.3 % (11.5-14.5); Segmented Neutrophils % 68.5 %
[2017-11-10 02:28] LABS: BUN/Creatinine Ratio 14 (6-26); Blood Urea Nitrogen 10 mg/dL (8-23); Carbon Dioxide 29 mEq/L (23-29); Chloride 105 mEq/L (98-107); Glucose 133 mg/dL (70-105); Osmolality,Calculated 291 (280-300); Potassium 3.1 mEq/L (3.5-5.1); Sodium 140 mEq/L (136-145); eGFR For Non-African Americans > 60 (> 60)
--- NOTE | 2017-11-10 09:27 | Internal Med Progress Note ---
<David Gary - Last Filed: 11/10/17 09:55> Date of Encounter: 11/10/17 Time of Encounter: 09:21 - Assessment and plan (1) Hypokalemia Current Visit: No Status: Resolved Assessment and plan: 3.1 today 40mEq Potassium Chloride slurry daily Continue to monitor (2) Urinary tract infection Current Visit: Yes Status: Acute Assessment and plan: UA on 11/07 revealed UTI Culture grew pseudomonas On day #4 of Zosyn as above Cont Zosyn Cont [place] maintenance Qualifiers: Urinary tract infection type: site unspecified Hematuria presence: with hematuria Qualified Code(s): N39.0 - Urinary tract infection, site not specified; R31.9 - Hematuria, unspecified (3) DVT prophylaxis Current Visit: Yes Status: Acute Assessment and plan: heparin SQ (4) Aspiration pneumonia Current Visit: Yes Status: Acute Assessment and plan: Per SNF, pt has to eat with supervision due to tendency to eat while lying flat and concerns for aspiration Presented with elevated WBC and respiratory failure Afebrile WBC 10.8 today Day #4 of Zosyn Diffuse wheezes on respiratory exam Albuterol nebs scheduled q4hr today, may de-escalate tomorrow if continued improvement Cont Zosyn Cont to monitor Qualifiers: Aspiration pneumonia type: unspecified Laterality: unspecified laterality Lung location: unspecified part of lung Qualified Code(s): J69.0 - Pneumonitis due to inhalation of food and vomit - Time Spent With Patient Total time spent is greater than 50% in coordination of care (as documented) at patient's floor/unit and/or counseling patient: - Subjective Interval history: Ms. Quintana is an 82F [facility] of CHF, HTN, RA, GERD, and hyperthyroidism, who was admitted for acute respiratory failure on 11/07. Required intubation and ventilator support for 1 night. Was successfully extubated on 11/08. Abx treatment tailored to Zosyn when urine culture grew pseudomonas. No acute events overnight. Difficult to assess mental status and continues to be pleasant but confused. Pt states she is "a little" SOB. States she is coughing and feels congested but is unable to cough the sputum up. Denies any fever, chills, chest pain, or abdominal pain. - Constitutional Vitals: Temp Pulse Resp BP Pulse Ox 99.2 F 72 15 135/61 95 11/10/17 06:40 11/10/17 06:40 11/10/17 06:40 11/10/17 06:40 11/10/17 06:40 General appearance: Present: cooperative, A&O X 1, pleasant, no acute distress Exam: Head: normocephalic and atraumatic Eyes: PERRL, EOMI, sclera anicteric, conjunctiva pink Neck: supple, trachea midline Lungs: Diffuse wheezes, non-labored breathing on 2lpm O2. No rales appreciated. Heart: RRR +S1 +S2. no murmurs, clicks or rubs appreciated. GI: abdomen soft, non-tender, distended. normoactive bowel sounds Extremities: warm, radial pulses palpable and symmetrical. no pedal edema or cyanosis. venous stasis changes in LEs. Neuro: A&Ox1. pt talking to herself and difficult to understand Skin: warm, dry, intact Internal Medicine: Result - Labs CBC & Chem 7: 11/10/17 01:50 11/10/17 01:50 Labs: Short CBC 11/10/17 Range/Units 01:50 WBC 10.8 (4.3-11.1) K/mcL Hgb 13.3 (11.5-15.4) g/dL Hct 41.2 (35.3-44.9) % Plt Count 280 (140-400) K/mcL Neutrophils # 7.4 (1.6-8.9) K/mcL BMP 11/09/17 11/10/17 14:47 01:50 Sodium 144 140 Potassium 3.3 L 3.1 L Chloride 105 105 Carbon Dioxide 30 H 29 BUN 11 10 Creatinine 0.84 0.71 Glucose 128 H 133 H Calcium 9.0 9.0 - ABG Interpretation ABG results: ABG ABG pH 7.39 pH Units (7.32-7.45) 11/08/17 05:08 ABG pCO2 44 mmHg (35-45) 11/08/17 05:08 ABG pO2 76 mmHg (85-104) L 11/08/17 05:08 ABG O2 Saturation 95 % (95-98) 11/08/17 05:08 Consult Discharge Plan - Plan Referrals: Jersey Esquivel MD [Primary Care Provider] - <Tayler Wick - Last Filed: 11/10/17 13:39> Date of Encounter: 11/10/17 - Assessment and plan (1) Urinary tract infection Current Visit: Yes Status: Acute Qualifiers: Urinary tract infection type: site unspecified Hematuria presence: with hematuria Qualified Code(s): N39.0 - Urinary tract infection, site not specified; R31.9 - Hematuria, unspecified (2) Hypokalemia Current Visit: No Status: Resolved (3) DVT prophylaxis Current Visit: Yes Status: Acute (4) Aspiration pneumonia Current Visit: Yes Status: Acute Qualifiers: Aspiration pneumonia type: unspecified Laterality: unspecified laterality Lung location: unspecified part of lung Qualified Code(s): J69.0 - Pneumonitis due to inhalation of food and vomit - Time Spent With Patient Total time spent is greater than 50% in coordination of care (as documented) at patient's floor/unit and/or counseling patient: - Constitutional Vitals: Temp Pulse Resp BP Pulse Ox 98.2 F 68 16 144/62 96 11/10/17 10:56 11/10/17 10:56 11/10/17 11:08 11/10/17 10:56 11/10/17 11:08 Internal Medicine: Result - Labs CBC & Chem 7: 11/10/17 01:50 11/10/17 01:50 Labs: Short CBC 11/10/17 Range/Units 01:50 WBC 10.8 (4.3-11.1) K/mcL Hgb 13.3 (11.5-15.4) g/dL Hct 41.2 (35.3-44.9) % Plt Count 280 (140-400) K/mcL Neutrophils # 7.4 (1.6-8.9) K/mcL BMP 11/09/17 11/10/17 14:47 01:50 Sodium 144 140 Potassium 3.3 L 3.1 L Chloride 105 105 Carbon Dioxide 30 H 29 BUN 11 10 Creatinine 0.84 0.71 Glucose 128 H 133 H Calcium 9.0 9.0 - ABG Interpretation ABG results: ABG ABG pH 7.39 pH Units (7.32-7.45) 11/08/17 05:08 ABG pCO2 44 mmHg (35-45) 11/08/17 05:08 ABG pO2 76 mmHg (85-104) L 11/08/17 05:08 ABG O2 Saturation 95 % (95-98) 11/08/17 05:08 - Attending Attestation I examined this patient and my medical decision-making was reviewed with the Resident Physician Dr. Gary. I agree with the documented findings, disposition and treatment plan as described except to the extent set forth below. Ms. Quintana is an 82[facility] PMH of CHF, HTN, RA, GERD, and hyperthyroidism, who was admitted for acute respiratory failure on 11/07. Required intubation and ventilator support for 1 night. Was successfully extubated on 11/08. Abx treatment tailored to Zosyn when urine culture grew pseudomonas. Pt is alert, awake and oriented to self only. Following all the commands. Mentation granger seems to be at baseline. Gen; A, A, O x self Chest: Diminished BS B/l, No rales, Crackles + rhonchi Heart: S1S2+ 1. Sepsis with PNA + UTI 2. Acute hypoxic resp failure 3. s/p VDRF cont Duoneb + O2 Cont empirical abx PNA mostly aspiration she does have lot of resp secretions, will do chest percussion and frequent deep suctions 4. UTI with Psuedomonas on Zosyn
[2017-11-10] MEDS: Albuterol 2.5 MG/3 ML NEBULIZER IH SCH ×4 (11:08→23:37)
[2017-11-10] MEDS: Potassium Chloride Elixir 20 MEQ/15 ML UDC PO SCH (11:22)
[2017-11-10] MEDS: Nystatin POWDER 30 GM BOTTLE TP SCH ×2 (11:22→20:04)
[2017-11-11] MEDS: *HR* Heparin 5,000 UNIT/ML VIAL SQ SCH ×3 (00:06→16:10)
[2017-11-11] MEDS: Piperacillin/Tazobactam 3.375 GM in 0.9 % Sodium Chloride Mini Bag 100 ML IVPB SCH ×3 (00:06→16:18)
[2017-11-11 03:25] LABS: Basophils % 0.3 %; Eosinophils # 0.2 K/mcL (0.0-0.6); Eosinophils % 2.8 %; Hemoglobin 12.2 g/dL (11.5-15.4); Immature Granulocytes % 0.4 % (0-4); Lymphocytes # 2.4 K/mcL (0.6-4.6); Mean Corpuscular Hemoglobin 28.6 pg (28.0-33.3); Mean Corpuscular Volume 86.7 fL (83.0-100.0); Mean Platelet Volume 9.8 fL (9.4-12.4); Monocytes # 0.6 K/mcL (0.0-1.3); Neutrophils # 3.6 K/mcL (1.6-8.9); Platelet Count 245 K/mcL (140-400); Red Blood Count 4.27 M/mcL (3.82-4.97); Red Cell Distribution Width 14.6 % (11.5-14.5); Segmented Neutrophils % 52.5 %
[2017-11-11 03:44] LABS: BUN/Creatinine Ratio 14 (6-26); Blood Urea Nitrogen 10 mg/dL (8-23); Calcium 8.7 mg/dL (8.6-10.3); Carbon Dioxide 31 mEq/L (23-29); Chloride 106 mEq/L (98-107); Glucose 113 mg/dL (70-105); Osmolality,Calculated 292 (280-300); Sodium 141 mEq/L (136-145); eGFR For Non-African Americans > 60 (> 60)
[2017-11-11] MEDS: Albuterol 2.5 MG/3 ML NEBULIZER IH SCH ×5 (04:23→20:20)
[2017-11-11] MEDS: Potassium Chloride Elixir 20 MEQ/15 ML UDC PO SCH (08:51)
--- NOTE | 2017-11-11 08:55 | Internal Med Progress Note ---
<David Gary - Last Filed: 11/11/17 08:53> Date of Encounter: 11/11/17 Time of Encounter: 08:53 - Assessment and plan (1) Hypokalemia Current Visit: No Status: Resolved Assessment and plan: 3.0 today 40mEq Potassium Chloride slurry daily 40mEq Potassium IV today Continue to monitor (2) Urinary tract infection Current Visit: Yes Status: Acute Assessment and plan: UA on 11/07 revealed UTI Culture grew pseudomonas On day #5 of Zosyn as above Cont Zosyn Cont [place] maintenance Qualifiers: Urinary tract infection type: site unspecified Hematuria presence: with hematuria Qualified Code(s): N39.0 - Urinary tract infection, site not specified; R31.9 - Hematuria, unspecified (3) DVT prophylaxis Current Visit: Yes Status: Acute Assessment and plan: heparin SQ (4) Aspiration pneumonia Current Visit: Yes Status: Acute Assessment and plan: Per SNF, pt has to eat with supervision due to tendency to eat while lying flat and concerns for aspiration Presented with elevated WBC and respiratory failure More energetic today Afebrile WBC 6.8 today Day #5 of Zosyn Diffuse wheezes on respiratory exam Albuterol nebs scheduled q4hr since yesterday with no improvement on physical exam Add po prednisone Cont scheduled nebs Cont Zosyn since pt also has Psuedomonas UTI Cont to monitor Anticipate ready for d/c tomorrow to SNF. Will switch to po abx at that time Qualifiers: Aspiration pneumonia type: unspecified Laterality: unspecified laterality Lung location: unspecified part of lung Qualified Code(s): J69.0 - Pneumonitis due to inhalation of food and vomit - Time Spent With Patient Total time spent is greater than 50% in coordination of care (as documented) at patient's floor/unit and/or counseling patient: - Subjective Interval history: [facility] 82[facility], RA, GERD, and hyperthyroidism, who was admitted for acute respiratory failure on 11/07. Required intubation and ventilator support for 1 night. Was successfully extubated on 11/08. Abx treatment tailored to Zosyn when urine culture grew pseudomonas. No acute events overnight. Difficult to assess mental status and continues to be pleasant but confused. Pt denies any SOB, coughing, fever, chills, chest pain , or abdominal pain. - Constitutional Vitals: Temp Pulse Resp BP Pulse Ox 97.9 F 64 16 136/62 97 11/11/17 06:34 11/11/17 06:34 11/11/17 07:38 11/11/17 06:34 11/11/17 07:38 General appearance: Present: cooperative, A&O X 1, pleasant, no acute distress Exam: Head: normocephalic and atraumatic Eyes: PERRL, EOMI, sclera anicteric, conjunctiva pink Neck: supple, trachea midline, no lymphadenopathy Lungs: Diffuse wheezes, no rales. non-labored breathing on 2lpm Heart: RRR +s1 +s2. no murmurs, clicks, or rubs GI: abdomen soft, non-tender, non-distended Extremities: warm, radial pulses palpable and symmetrical. no pedal edema or cyanosis. Chronic venous stasis changes to LEs bilaterally Neuro: A&Ox1. no speech difficulty. Skin: warm, dry, intact Internal Medicine: Result - Labs CBC & Chem 7: 11/11/17 03:02 11/11/17 03:02 Labs: Short CBC 11/11/17 Range/Units 03:02 WBC 6.8 (4.3-11.1) K/mcL Hgb 12.2 (11.5-15.4) g/dL Hct 37.0 (35.3-44.9) % Plt Count 245 (140-400) K/mcL Neutrophils # 3.6 (1.6-8.9) K/mcL BMP 11/11/17 03:02 Sodium 141 Potassium 3.0 L Chloride 106 Carbon Dioxide 31 H BUN 10 Creatinine 0.73 Glucose 113 H Calcium 8.7 - ABG Interpretation ABG results: ABG ABG pH 7.39 pH Units (7.32-7.45) 11/08/17 05:08 ABG pCO2 44 mmHg (35-45) 11/08/17 05:08 ABG pO2 76 mmHg (85-104) L 11/08/17 05:08 ABG O2 Saturation 95 % (95-98) 11/08/17 05:08 Consult Discharge Plan - Plan Referrals: Jersey Esquivel MD [Primary Care Provider] - <Tayler Wick - Last Filed: 11/11/17 13:32> Date of Encounter: 11/11/17 - Assessment and plan (1) Urinary tract infection Current Visit: Yes Status: Acute Qualifiers: Urinary tract infection type: site unspecified Hematuria presence: with hematuria Qualified Code(s): N39.0 - Urinary tract infection, site not specified; R31.9 - Hematuria, unspecified (2) Hypokalemia Current Visit: No Status: Resolved (3) DVT prophylaxis Current Visit: Yes Status: Acute (4) Aspiration pneumonia Current Visit: Yes Status: Acute Qualifiers: Aspiration pneumonia type: unspecified Laterality: unspecified laterality Lung location: unspecified part of lung Qualified Code(s): J69.0 - Pneumonitis due to inhalation of food and vomit - Time Spent With Patient Total time spent is greater than 50% in coordination of care (as documented) at patient's floor/unit and/or counseling patient: - Constitutional Vitals: Temp Pulse Resp BP Pulse Ox 97.9 F 64 16 136/62 96 11/11/17 06:34 11/11/17 06:34 11/11/17 11:02 11/11/17 06:34 11/11/17 11:02 Internal Medicine: Result - Labs CBC & Chem 7: 11/11/17 03:02 11/11/17 03:02 Labs: Short CBC 11/11/17 Range/Units 03:02 WBC 6.8 (4.3-11.1) K/mcL Hgb 12.2 (11.5-15.4) g/dL Hct 37.0 (35.3-44.9) % Plt Count 245 (140-400) K/mcL Neutrophils # 3.6 (1.6-8.9) K/mcL BMP 11/11/17 03:02 Sodium 141 Potassium 3.0 L Chloride 106 Carbon Dioxide 31 H BUN 10 Creatinine 0.73 Glucose 113 H Calcium 8.7 - ABG Interpretation ABG results: ABG ABG pH 7.39 pH Units (7.32-7.45) 11/08/17 05:08 ABG pCO2 44 mmHg (35-45) 11/08/17 05:08 ABG pO2 76 mmHg (85-104) L 11/08/17 05:08 ABG O2 Saturation 95 % (95-98) 11/08/17 05:08 - Attending Attestation I examined this patient and my medical decision-making was reviewed with the Resident Physician Dr. Gary. I agree with the documented findings, disposition and treatment plan as described except to the extent set forth below. Ms. Quintana is an 82F [facility] PMH of CHF, HTN, RA, GERD, and hyperthyroidism, who was admitted for acute respiratory failure on 11/07. Required intubation and ventilator support for 1 night. Was successfully extubated on 11/08. Abx treatment tailored to Zosyn when urine culture grew pseudomonas. Pt is alert, awake and oriented to place and self only. Following all the commands. Mentation granger seems to be at baseline. Gen; A, A, O x self Chest: Diminished BS B/l, No rales, Crackles + rhonchi Heart: S1S2+ 1. Sepsis with PNA + UTI 2. Acute hypoxic resp failure 3. s/p VDRF cont Duoneb + O2 Cont empirical abx PNA mostly aspiration cont chest percussion and frequent deep suctions she does have moderate wheezing will start her on low dose steroids today 4. UTI with Psuedomonas on Zosyn
[2017-11-11] MEDS ORDERED: 0.9 % Sodium Chloride 1,000 ML ONE (09:39)
[2017-11-11] MEDS: Nystatin POWDER 30 GM BOTTLE TP SCH ×2 (11:01→23:40)
[2017-11-11] MEDS: predniSONE 20 MG TABLET PO SCH (16:09)
[2017-11-12] MEDS: *HR* Heparin 5,000 UNIT/ML VIAL SQ SCH ×2 (00:07→09:39)
[2017-11-12] MEDS: Piperacillin/Tazobactam 3.375 GM in 0.9 % Sodium Chloride Mini Bag 100 ML IVPB SCH ×2 (00:07→09:39)
[2017-11-12] MEDS: Albuterol 2.5 MG/3 ML NEBULIZER IH SCH ×6 (00:11→20:05)
[2017-11-12 03:59] LABS: Basophils % 0.4 %; Hematocrit 39.1 % (35.3-44.9); Hemoglobin 12.9 g/dL (11.5-15.4); Immature Granulocytes % 1.2 % (0-4); Lymphocytes # 1.1 K/mcL (0.6-4.6); Lymphocytes % 19.2 %; Mean Platelet Volume 9.9 fL (9.4-12.4); Monocytes # 0.1 K/mcL (0.0-1.3); Monocytes % 2.3 %; Neutrophils # 4.3 K/mcL (1.6-8.9); Platelet Count 274 K/mcL (140-400); Red Cell Distribution Width 14.6 % (11.5-14.5); Segmented Neutrophils % 76.9 %
[2017-11-12 04:20] LABS: BUN/Creatinine Ratio 13 (6-26); Blood Urea Nitrogen 8 mg/dL (8-23); Carbon Dioxide 26 mEq/L (23-29); Chloride 106 mEq/L (98-107); Glucose 190 mg/dL (70-105); Osmolality,Calculated 289 (280-300); Potassium 3.9 mEq/L (3.5-5.1); Sodium 138 mEq/L (136-145); eGFR For Non-African Americans > 60 (> 60)
[2017-11-12] MEDS: Potassium Chloride Elixir 20 MEQ/15 ML UDC PO SCH (09:40)
[2017-11-12] MEDS: predniSONE 20 MG TABLET PO SCH ×2 (09:40→16:03)
[2017-11-12] MEDS: Nystatin POWDER 30 GM BOTTLE TP SCH ×2 (09:46→20:48)
--- NOTE | 2017-11-12 14:59 | Internal Med Progress Note ---
<TristianNeri trinidad - Last Filed: 11/12/17 16:19> Date of Encounter: 11/12/17 Time of Encounter: 08:45 - Assessment and plan (1) Acute respiratory failure Current Visit: Yes Status: Acute Assessment and plan: -Patient was initially admitted for acute respiratory failure as a transfer from [facility] -Patient required intubation and ventilation for one night (intubated on 11/07/17 , extubated on 11/08/17) -At this time the patient is still complaining of dyspnea -Acute respiratory failure is believed to be secondary to UTI or aspiration pneumonia -Patient is currently on 2L Oxygen via nasal cannula and her O2 Saturation is 95 % -Patient is also receivning treatment via Prednisone 40 meq PO daily and Albuterol 2.5 mg IH Q4 hours -Continue to monitor the patient (2) Altered mental status Current Visit: No Status: Acute Assessment and plan: -Patient is Alert and Oriented x 2, she is aware of place and time, but not person -AMS could possibly be secondary due to respiratory failure or infection -Patient is currently being treated for both her UTI and Pneumonia with Cefepime -Based on the patient's history however, this appears to be the patient's baseline -Continue to monitor the patient Qualifiers: Coma timing: in the field (EMT or ambulance) (3) Urinary tract infection Current Visit: Yes Status: Acute Assessment and plan: -Based on the UA, the patient was found to have a UTI upon admission (10/28/17) -Cultures have grown Pseudomonas with sensitivity to Zosyn -Patient is currently on day 6 of antibiotics and being treated with Zosyn 100 mls @ 25 mls/hr, however this has been switched to Cefepime (11/12/17) -Patient will receive a repeat urine culture -Continue to monitor Qualifiers: Urinary tract infection type: site unspecified Hematuria presence: with hematuria Qualified Code(s): N39.0 - Urinary tract infection, site not specified; R31.9 - Hematuria, unspecified (4) Aspiration pneumonia Current Visit: Yes Status: Acute Assessment and plan: -[facility] and was initially admitted for acute respiratory failure -Nursing facility states that patient has a tendency to eat and drink while lying down -Patient initially presented with an elevated WBC (12.8) which has trended down (5.6) -Per speech therapy, the patient has oral dysphagia and should receive pureed textures and thin liquids without a straw -Patient was Zosyn 100 mls @ 25 mls/hr, however this has been switched to Cefepime (11/12/17) -Continue to monitor Qualifiers: Aspiration pneumonia type: unspecified Laterality: unspecified laterality Lung location: unspecified part of lung Qualified Code(s): J69.0 - Pneumonitis due to inhalation of food and vomit (5) Hypokalemia Current Visit: No Status: Resolved Assessment and plan: -Patient had been suffering from Hypokalemia previously -Yesterday lab results revealed a Potassium level of 3.0 -Patient received 40mEq Potassium Chloride slurry daily and 40mEq Potassium IV -Today values have normalized at 3.9 (11/12/17) -Continue to monitor (6) DVT prophylaxis Current Visit: Yes Status: Acute Assessment and plan: -Patient has been receiving anticoagulation with Heparin, however this has been switched to Xarelto -Patient is not complaining of any calf/leg tenderness and there is no swelling of the lower extremities -Continue to monitor - Subjective Interval history: Ms. Quintana was sitting up awake and watching TV upon my arrival. Upon questioning she is alert and oriented x 2. The patient states that she did not sleep well last night, however she feels as though her shortness of breath is improved today, but still present. She also states that she is still having some pain with urination. Ms. Quintana denies any chest pain, abdominal pain, nausea or vomiting, fever, and chills. She also states that she has been urinating well and had a bowel movement yesterday. - Constitutional Vitals: Temp Pulse Resp BP Pulse Ox 97.8 F 77 18 142/66 95 11/12/17 10:45 11/12/17 10:45 11/12/17 11:19 11/12/17 10:45 11/12/17 11:19 General appearance: Present: cooperative, A&O X 2, pleasant, no acute distress - Head Head exam: Present: atraumatic, normocephalic - Eye Eye exam: Present: PERRL, conjuntiva pink, sclera anicteric Pupils: Present: PERRL - Neck Neck exam general surgery: Present: lymphadenopathy, trachea midline - Respiratory Respiratory exam: Present: CTAB. Absent: accessory muscle use - Cardiovascular Cardiovascular exam: Present: diastolic murmur, gallop, RRR, +S1, +S2, systolic murmur. Absent: rubs - GI/Abdominal GI/Abdominal exam: Present: distended, normal bowel sounds, soft - Extremities Exam Extremities exam: Present: warm. Absent: calf tenderness, cyanotic, pedal edema - Neurological Exam Neurological exam: Present: CN II-XII intact, no focal deficits - Skin Skin exam: Present: dry, intact Internal Medicine: Result - Labs CBC & Chem 7: 11/12/17 03:28 11/12/17 03:28 Labs: Short CBC 11/12/17 Range/Units 03:28 WBC 5.6 (4.3-11.1) K/mcL Hgb 12.9 (11.5-15.4) g/dL Hct 39.1 (35.3-44.9) % Plt Count 274 (140-400) K/mcL Neutrophils # 4.3 (1.6-8.9) K/mcL BMP 11/12/17 03:28 Sodium 138 Potassium 3.9 Chloride 106 Carbon Dioxide 26 BUN 8 Creatinine 0.60 Glucose 190 H Calcium 9.0 - ABG Interpretation ABG results: ABG ABG pH 7.39 pH Units (7.32-7.45) 11/08/17 05:08 ABG pCO2 44 mmHg (35-45) 11/08/17 05:08 ABG pO2 76 mmHg (85-104) L 11/08/17 05:08 ABG O2 Saturation 95 % (95-98) 11/08/17 05:08 Consult Discharge Plan - Plan Referrals: Jersey Esquivel MD [Primary Care Provider] - <Power Ochoa - Last Filed: 11/12/17 21:16> Date of Encounter: 11/12/17 - Constitutional Vitals: Temp Pulse Resp BP Pulse Ox 98.4 F 71 16 130/63 96 11/12/17 15:00 11/12/17 15:00 11/12/17 20:05 11/12/17 15:00 11/12/17 20:05 Internal Medicine: Result - Labs CBC & Chem 7: 11/12/17 03:28 11/12/17 03:28 Labs: Short CBC 11/12/17 Range/Units 03:28 WBC 5.6 (4.3-11.1) K/mcL Hgb 12.9 (11.5-15.4) g/dL Hct 39.1 (35.3-44.9) % Plt Count 274 (140-400) K/mcL Neutrophils # 4.3 (1.6-8.9) K/mcL BMP 11/12/17 03:28 Sodium 138 Potassium 3.9 Chloride 106 Carbon Dioxide 26 BUN 8 Creatinine 0.60 Glucose 190 H Calcium 9.0 - ABG Interpretation ABG results: ABG ABG pH 7.39 pH Units (7.32-7.45) 11/08/17 05:08 ABG pCO2 44 mmHg (35-45) 11/08/17 05:08 ABG pO2 76 mmHg (85-104) L 11/08/17 05:08 ABG O2 Saturation 95 % (95-98) 11/08/17 05:08 - Attending Attestation I examined this patient and my medical decision-making was reviewed, please see my progress note for further assessment/plan.
[2017-11-12] MEDS: Cefepime HCl 2,000 MG in Water for inj. (sterile) 20 ML 20 ML IVP SCH (16:03)
[2017-11-12] MEDS ORDERED: *HR* Rivaroxaban 10 MG TABLET PO SCH (17:00)
--- NOTE | 2017-11-12 21:31 | Internal Med Progress Note ---
Hospitalist Progress Note - Encounter Date of Encounter: 11/12/17 Time of Encounter: 14:00 - Subjective Interval History: No acute events overnight. She has no complaints but patient is confused, possibly with dementia. - Exam Vitals: Temp Pulse Resp BP Pulse Ox 98.4 F 71 16 130/63 96 11/12/17 15:00 11/12/17 15:00 11/12/17 20:05 11/12/17 15:00 11/12/17 20:05 Exam: Gen: NAD CVS: RRR Lungs: Diffuse wheezing throughout. Ext: no edema. - Assessment and Plan (1) Acute respiratory failure Current Visit: Yes Status: Acute Assessment and Plan: Likely from altered mental status/septic shock. Patient was successfully extubated and transferred out of ICU -Patient was initially admitted for acute respiratory failure as a transfer from [facility] -Patient required intubation and ventilation for one night (intubated on 11/07/17 , extubated on 11/08/17) -Acute respiratory failure is believed to be secondary to UTI or aspiration pneumonia -Patient is currently on 2L Oxygen via nasal cannula and her O2 Saturation is 95 % -Patient is also receivning treatment via Prednisone 40 meq PO daily and Albuterol 2.5 mg IH Q4 hours - Currently has no complaints of dyspnea. - Swallow eval done, no signs or symptoms of aspiration. - Will need discharge to SNF to complete 10 days Zosyn, and Prednisone taper. (2) Aspiration pneumonia Current Visit: Yes Status: Acute Assessment and Plan: Per SNF, pt has to eat with supervision due to tendency to eat while lying flat and concerns for aspiration Presented with elevated WBC and respiratory failure Speech saw patient, currently on pureed diet, but taken into consideration that patient does not have dentures. There was no signs of aspiration during that eval. Repeat swallow eval at SNF and with dentures. Will need to continue Zosyn on discharge for Pseudomonas UTI which will cover aspiration pneumonia. (3) Poor social situation Current Visit: Yes Status: Acute (4) Severe sepsis Current Visit: Yes Status: Acute Assessment and Plan: Septic shock secondary to Pseudomonas UTI. LA on admission 11/07/17, 6.3, now within normal limits. Urine culture sensitivities available. On Zosyn Day #6 Will need to complete total of 10 days Zosyn, can be done at SNF since patient is resolved sepsis and hemodynamically stable. (5) Altered mental status Current Visit: No Status: Acute (6) Hypokalemia Current Visit: No Status: Resolved Assessment and Plan: Today within normal limits. (7) DVT prophylaxis Current Visit: Yes Status: Acute Assessment and Plan: heparin SQ - Time Spent with Patient Total time spent is greater than 50% in coordination of care (as documented) at patient's floor/unit and/or counseling patient: Internal Medicine: Result - Labs CBC & Chem 7: 11/12/17 03:28 11/12/17 03:28 Labs: Short CBC 11/12/17 Range/Units 03:28 WBC 5.6 (4.3-11.1) K/mcL Hgb 12.9 (11.5-15.4) g/dL Hct 39.1 (35.3-44.9) % Plt Count 274 (140-400) K/mcL Neutrophils # 4.3 (1.6-8.9) K/mcL BMP 11/12/17 03:28 Sodium 138 Potassium 3.9 Chloride 106 Carbon Dioxide 26 BUN 8 Creatinine 0.60 Glucose 190 H Calcium 9.0 - ABG Interpretation ABG results: ABG ABG pH 7.39 pH Units (7.32-7.45) 11/08/17 05:08 ABG pCO2 44 mmHg (35-45) 11/08/17 05:08 ABG pO2 76 mmHg (85-104) L 11/08/17 05:08 ABG O2 Saturation 95 % (95-98) 11/08/17 05:08 Consult Discharge Plan - Plan Referrals: Jersey Esquivel MD [Primary Care Provider] - (1) Acute respiratory failure Qualifiers: Respiratory failure complication: hypoxia Qualified Code(s): J96.01 - Acute respiratory failure with hypoxia (2) Aspiration pneumonia Qualifiers: Aspiration pneumonia type: unspecified Laterality: unspecified laterality Lung location: unspecified part of lung Qualified Code(s): J69.0 - Pneumonitis due to inhalation of food and vomit (5) Altered mental status Qualifiers: Coma timing: in the field (EMT or ambulance)
[2017-11-13] MEDS: Albuterol 2.5 MG/3 ML NEBULIZER IH SCH ×4 (00:06→11:05)
[2017-11-13 05:15] LABS: Basophils % 0.2 %; Hematocrit 42.4 % (35.3-44.9); Hemoglobin 13.6 g/dL (11.5-15.4); Immature Granulocytes % 0.9 % (0-4); Lymphocytes # 1.5 K/mcL (0.6-4.6); Lymphocytes % 17.7 %; Mean Corpuscular HGB Conc 32.1 g/dL (31.6-35.5); Mean Corpuscular Hemoglobin 27.6 pg (28.0-33.3); Mean Corpuscular Volume 86.2 fL (83.0-100.0); Mean Platelet Volume 9.8 fL (9.4-12.4); Monocytes # 0.4 K/mcL (0.0-1.3); Monocytes % 4.9 %; Neutrophils # 6.6 K/mcL (1.6-8.9); Platelet Count 286 K/mcL (140-400); Red Blood Count 4.92 M/mcL (3.82-4.97); Red Cell Distribution Width 14.8 % (11.5-14.5); Segmented Neutrophils % 76.3 %
[2017-11-13 05:31] LABS: BUN/Creatinine Ratio 14 (6-26); Blood Urea Nitrogen 9 mg/dL (8-23); Calcium 9.7 mg/dL (8.6-10.3); Carbon Dioxide 28 mEq/L (23-29); Chloride 104 mEq/L (98-107); Glucose 145 mg/dL (70-105); Osmolality,Calculated 291 (280-300); Potassium 4.2 mEq/L (3.5-5.1); Sodium 140 mEq/L (136-145); eGFR For Non-African Americans > 60 (> 60)
[2017-11-13] MEDS: Cefepime HCl 2,000 MG in Water for inj. (sterile) 20 ML 20 ML IVP SCH (05:54)
[2017-11-13] MEDS ORDERED: Piperacillin/Tazobactam 3.375 GM in 0.9 % Sodium Chloride Mini Bag 100 ML IVPB SCH (08:00)
[2017-11-13] MEDS: Potassium Chloride Elixir 20 MEQ/15 ML UDC PO SCH (08:09)
[2017-11-13] MEDS: predniSONE 20 MG TABLET PO SCH (08:09)
[2017-11-13] MEDS: Nystatin POWDER 30 GM BOTTLE TP SCH (08:15)
--- NOTE | 2017-11-13 08:43 | Event Note ---
Date of Encounter: 11/13/17 Time of Encounter: 08:15 Medical Student Note-Neri Lubin, OMS-IV Subjective: Ms. Quintana was sitting up, and eating breakfast upon my arrival. She is eating her breakfast well and denies any problem with choking at this time. Upon questioning she is alert and oriented x 2. The patient states that she did not sleep well last night, however she feels as though her shortness of breath is improved today. Additionally the patient continues to have some pain with urination. Ms. Quintana denies any chest pain, abdominal pain, nausea or vomiting, fever, and chills. She also states that she has been urinating well and had a bowel movement today. Objective: Vitals: Temperature-97.6, HR-63, RR-16, RP-140/63, O2-98 General Appearance: Patient is alert and oriented x 2, appears pleasant and not in any acute distress, appears older than stated age Head exam: Atraumatic, normocephalic Eye exam: PERRL, conjuntiva pink, sclera anicteric Neck exam: Trachea midline Respiratory exam: Clear to auscultation bilaterally, no wheezes, rales, rhonci Cardiology exam: Diastolic murmur, gallop, RRR, +S1, +S2 Gastrointestinal exam: Distended, normal bowel sounds, soft Extremities exam: warm without tenderness or peripheral edema Neurological exam: CN II-XII intact, no focal deficits, alert and oriented x 2 ( aware of place and time, but not person) Skin exam: Dry and intact Assessment: 1. Acute Respiratory Failure 2. Altered Mental Status 3. UTI 4. Aspiration Pneumonia 5.DVT Prophylaxis Plan: 1. Acute respiratory failure is believed to be secondary to UTI or aspiration pneumonia. Patient is currently on 2L Oxygen via nasal cannula and her O2 Saturation is 98%. She is also receiving treatment via Prednisone 40 meq PO daily and Albuterol 2.5 mg IH Q4 hours. Patient states that her dyspnea has improved. 2. Patient is Alert and Oriented x 2, she is aware of place and time, but not person. Patient's laboratory values, such as Na and Ca, are within normal limits. AMS could possibly be secondary due to respiratory failure or infection. Patient is currently being treated for both her UTI and Pneumonia with Zosyn. 3. Upon admission, patient's urine cultures grew Pseudomonas with sensitivity to Zosyn. Patient is currently on day 7 of antibiotics and being treated with Zosyn 100 mls @ 25 mls/hr. Patient should receive a follow up urine culture, but clinically appears to be doing better. 4. Patient has a tendency to eat and drink while lying down. Initially presented with an elevated WBC (12.8) which has trended down (8.7). Was evaluated by speech therapy and per their recommendations the patient should receive pureed textures and thin liquids without a straw. Continue Zosyn 100 mls @ 25 mls/hr 5. Patient is currently receiving anticoagulation with Xarelto. No complaints of any calf/leg tenderness and there is no swelling of the lower extremities.
[2017-11-13 10:51] VITALS: BP 127/69
--- NOTE | 2017-11-13 12:16 | Discharge Summary ---
- NOTES TO OUTPATIENT PROVIDER Notes to Outpatient Provider: - Taper Prednisone. - Zosyn for 3 more days. - Nebulizer Q6H and then swith to prn as tolerated. Orders not resulted at time of discharge: Pending orders 11/08/17 14:30 Arterial Blood Gas DAILY 11/12/17 13:45 Culture,Urine [RM] Stat Date of Encounter: 11/13/17 Time of Encounter: 12:15 - Discharge Diagnosis (1) Acute respiratory failure Priority: Primary Status: Acute Qualifiers: Respiratory failure complication: hypoxia Qualified Code(s): J96.01 - Acute respiratory failure with hypoxia (2) Severe sepsis Priority: Secondary Status: Acute (3) Pseudomonas urinary tract infection Priority: Secondary Status: Acute (4) Aspiration pneumonia Priority: Secondary Status: Acute Qualifiers: Aspiration pneumonia type: unspecified Laterality: unspecified laterality Lung location: unspecified part of lung Qualified Code(s): J69.0 - Pneumonitis due to inhalation of food and vomit (5) Poor social situation Priority: Secondary Status: Acute (6) Altered mental status Priority: Secondary Status: Acute Qualifiers: Altered mental status type: unspecified Qualified Code(s): R41.82 - Altered mental status, unspecified (7) Hypokalemia Priority: Secondary Status: Resolved (8) DVT prophylaxis Priority: Secondary Status: Acute (9) Urinary tract infection Priority: Secondary Status: Acute Qualifiers: Urinary tract infection type: site unspecified Hematuria presence: with hematuria Qualified Code(s): N39.0 - Urinary tract infection, site not specified; R31.9 - Hematuria, unspecified Hospital course: Ms. Quintana is a 82 year old female with history of GERD, RA, hypertension, heart failure, who was transferred to [facility] from [place] ED after she was [facility] where she is noted to be unresponsive and have shallow agonal respirations. The history was gathered entirely from the medical record and the emergency room physician at [place] as patient is intubated and unable to give a medical history there is no family members at bedside. Per run sheet from EMS she was breathing about 4 times a minute and started bagging was put on the heart monitor which showed a normal sinus rhythm with periodic sinus tachycardia IV was attempted in the field 3 but was unsuccessful per report patient had a full body seizure about 1-2 minutes in length although this is all secondhand information based upon the EMS run sheet. Oxygen saturation when I initially saw the patient was 80%. In the ED at [place] she was still having agonal respirations with a ABG consistent with respiratory acidosis she was emergently intubated on the first attempt without complication. She was mildly hypotensive after intubation which responded to approximately 2 L of crystalloid infusion white count was elevated to 15 H&H was stable BMP was relatively unremarkable however lactic acid was elevated to greater than 6 on admission BNP was 117 troponin was normal ECG Afib with NSSTCs without any dynamic changes clearly suggestive of ACS. CT head without acute process Chest x-ray notable for him bilateral atelectasis her urine was concentrated and foul smelling per report She was started on broad-spectrum antimicrobials and ever receiving volume resuscitation and mechanical ventilation was transferred to [facility] for ongoing care. In ICU patient was eventually extubated. She was transferred to tele/step down unit. Patient mentation improved. She was continued on aerosol therapy, Zosyn, and corticosteroids. Patient mentation improved. She appears to have a baseline dementia. Suspicion that these symptoms were caused by aspiration pneumonia and/or UTI. Urinalysis came back with Pseudomnas, blood cultures were negative. Lactic acid went down to within normal limits. Based on sensitivities and aspiration pneumonia, she was discharged back to SNF to complete total of 10 days of Zosyn therapy. She was discharged home in stable condition. - Time Spent with Patient Total time spent providing and/or coordinating discharge services: - Discharge Medications Prescriptions: Piperacillin/Tazobactam [Zosyn] 3.375 gm IVPB Q8HR 3 Days #9 vial Home Medications: Acetaminophen [Tylenol] 500 mg PO Q4H PRN 11/07/17 [History] Rivaroxaban [Xarelto] 20 mg PO 0700 11/07/17 [History] Albuterol Neb [Proventil Neb] 2.5 mg IH [id number] inhsol 11/13/17 [Rx] Metoprolol [Lopressor] 25 mg PO BID tablet 11/13/17 [Rx] Nystatin POWDER [Nystop] 1 appl TP BID bottle 11/13/17 [Rx] Piperacillin/Tazobactam [Zosyn] 3.375 gm IVPB Q8HR 3 Days #9 vial 07/31/18 [Rx] predniSONE [PredniSONE] 60 mg PO DAILY tablet 11/13/17 [Rx] Allergies/Adverse Reactions: 3 Allergy/AdvReac Type Severity Reaction Status Date / Time Sulfa (Sulfonamide Allergy Hives Verified 11/07/17 13:52 Antibiotics) ivp dye Allergy Hives Uncoded 11/07/17 13:52 Date of admission: 11/07/17 11:48 Primary care physician: Jersey Esquivel MD Consults: 11/07/17 14:25 Consult to [employer]ner [CONS] Stat Reason for SW Consult: poor social situation with history of protective services. 11/12/17 13:45 Consult to Speech Therapy [CONS] Routine Comment: Evaluate, develop and implement POC Reason for Consult: Evaluate for recurrent aspiration Call Completed: No 11/13/17 09:25 Consult to Invasive Line Access Team [CONS] Routine Reason for Consult: going to SNF with IV ATB Line Type: EPIV Discharging clinician: Power Ochoa - Constitutional Vitals: Temp Pulse Resp BP Pulse Ox 98.1 F 72 18 127/69 94 11/13/17 10:50 11/13/17 10:50 11/13/17 11:05 11/13/17 10:50 11/13/17 11:05 General appearance: Present: cooperative, A&O X 2, pleasant, no acute distress Exam: Head: normocephalic and atraumatic Eyes: PERRL, EOMI, sclera anicteric, conjunctiva pink Neck: supple, trachea midline, no lymphadenopathy Lungs: Diffuse wheezes improved sine yesterday, no rales. Heart: RRR +s1 +s2. no murmurs, clicks, or rubs GI: abdomen soft, non-tender, non-distended Extremities: warm, radial pulses palpable and symmetrical. no pedal edema or cyanosis. Chronic venous stasis changes to LEs bilaterally Neuro: A&Ox1. no speech difficulty. Skin: warm, dry, intact - Patient Status Disposition: Transfer SNF Condition: Undetermined Functional capacity at discharge: uses cane/walker Overall status at discharge: patient is progressing back to baseline - Discharge Instructions Instructions: Piperacillin/Tazobactam (Injection), Acute Respiratory Distress Syndrome (DC), Urinary Tract Infection in Women (DC), Cellulitis (DC), Hypothyroidism (DC), Sepsis (DC), Pneumonia (DC) Follow Up With: Jersey Esquivel MD [Primary Care Provider] - - Diet and Activity Activity: as per physical therapy Diet: advance to your usual diet - VTE Documentation of Mechanical Device: Intermittent pneumatic compression device
== END 2017-11-13 14:47 | DRG 871 ==
LOC: ICNU 11:48 → SUATTDRO 11:48 → 2NENU 11-09 17:15
PROVIDERS: ADMIT Internal Medicine; ATTEND Family Medicine